=== PATIENT | male | born 1960 | race Caucasian/White ===

== ENCOUNTER → 2020-11-23 | Outpatient (CLI) | payer BC ==
[~2020-11-23] MED LIST: ALDACTONE 25MG25 MG PO; AMIODARONE HCL200 MG PO; AMIODARONE HCL400 MG PO; ASPIRIN EC81 MG PO; CLINDAMYCIN HC300 MG PO; COZAAR 25MG TAB25 MG PO; HYDROCODON-ACE1 EAC4 PO; IRON PO; LOPRESSOR 25 MG25 MG PO; MEXILETINE HCL200 MG PO; SYNTHROID200 MCG PO; TYLENOL WITH C1 EACH PO
== END ==
LOC: HEART 5 09:00
DX: Z51.81 Encounter for therapeutic drug level monitoring (principal); Z79.899 Other long term (current) drug therapy; R94.2 Abnormal results of pulmonary function studies; F17.210 Nicotine dependence, cigarettes, uncomplicated
CPT/HCPCS: 94010; 94729

== ENCOUNTER → 2020-12-06 | Outpatient (CLI) | payer BC | LOC: HEART 5 12-01 13:30 | DX: I50.22 Chronic systolic (congestive) heart failure (principal); I42.0 Dilated cardiomyopathy; R93.1 Abnormal findings on diagnostic imaging of heart and coronary circulation; I07.1 Rheumatic tricuspid insufficiency; Z95.0 Presence of cardiac pacemaker | CPT/HCPCS: 93306 ==

== ENCOUNTER 2020-12-10 11:36 | Emergency (ER) | payer BC ==
[~2020-12-10 11:36] MED LIST changes: -HYDROCODON-ACE1 EAC4 PO
[2020-12-10] MEDS ORDERED: HYDROCODON-ACE1 EAC4 PO (16:19)
== END 2020-12-10 16:43 | disposition home or self-care (01) ==
LOC: ER1 11:36
DX: S61.412A Laceration without foreign body of left hand, initial encounter (principal); S00.83XA Contusion of other part of head, initial encounter; I25.10 Atherosclerotic heart disease of native coronary artery without angina pectoris; Z95.0 Presence of cardiac pacemaker; Z88.0 Allergy status to penicillin; Z88.1 Allergy status to other antibiotic agents; W19.XXXA Unspecified fall, initial encounter; Y92.009 Unspecified place in unspecified non-institutional (private) residence as the place of occurrence of the external cause
CPT/HCPCS: 12004; 73130; 99283

== ENCOUNTER 2021-03-31 23:20 | Inpatient (IN) | payer BC ==
[~2021-03-31] VITALS: Ht 182.9 cm; Wt 129.3 kg
[~2021-03-31 23:20] MED LIST changes: +HYDROCODON-ACE1 EAC4 PO; -IRON PO; -SYNTHROID200 MCG PO
[2021-04-01 00:59] LABS: RED BLOOD COUNT 5.13 M/UL (4.20-5.50); WHITE BLOOD COUNT 6.7 K/UL (4.5-11.0)
[2021-04-01 01:25] LABS: BUN/CREATININE RATIO 26 (0-10)
[2021-04-02 04:46] LABS: HEMOGLOBIN 16.3 gm/dl (14.0-17.5); RED BLOOD COUNT 4.66 M/UL (4.20-5.50); WHITE BLOOD COUNT 7.7 K/UL (4.5-11.0)
[2021-04-02 05:08] LABS: BUN/CREATININE RATIO 30 (0-10)
[2021-04-03 02:07] LABS: HEMOGLOBIN 15.9 gm/dl (14.0-17.5); RED BLOOD COUNT 4.54 M/UL (4.20-5.50); WHITE BLOOD COUNT 9.1 K/UL (4.5-11.0)
[2021-04-03 02:27] LABS: BUN/CREATININE RATIO 32 (0-10)
[2021-04-03] MEDS ORDERED: PACERONE200 MG PO (12:52)
--- NOTE | 2021-04-03 19:27 | NUR ---
PROVIDERS JOIE AND OMER NOTIFED OF THE CRITICAL LACTIC ACID RESULTS FOR THE PT IN 4114. JOIE STATED NO FURTHER TREATMENT NEED THIS MORNING ON ASSESSMENT DUE TO FLUIDS RUNNING. OMER STATED NO FURTHER TREATMENTS WERE NEEDED EXCEPT FLUIDS FOR 4114 AND THEN IF LACTIC ACID RESOLVES WITHIN NORMAL LIMITS, FLUIDS CAN BE DISCONTINUED. WILL CONTINUE TO MONITOR PT THROUGHOUT THE SHIFT.
[2021-04-03] MEDS ORDERED: SYNTHROID175 MCG PO (19:47)
[2021-04-03] MEDS ORDERED: IRON325 M1 PO (19:49)
[2021-04-04 11:44] LABS: HEMOGLOBIN 17.3 gm/dl (14.0-17.5); RED BLOOD COUNT 4.9 M/UL (4.20-5.50); WHITE BLOOD COUNT 10.1 K/UL (4.5-11.0)
[2021-04-04 12:14] LABS: BUN/CREATININE RATIO 32 (0-10)
[2021-04-05 07:01] LABS: HEMOGLOBIN 17.2 gm/dl (14.0-17.5); RED BLOOD COUNT 4.92 M/UL (4.20-5.50); WHITE BLOOD COUNT 11.7 K/UL (4.5-11.0)
[2021-04-05 07:41] LABS: BUN/CREATININE RATIO 27 (0-10)
[2021-04-06 06:47] LABS: HEMOGLOBIN 18.2 gm/dl (14.0-17.5); RED BLOOD COUNT 5.21 M/UL (4.20-5.50); WHITE BLOOD COUNT 12.2 K/UL (4.5-11.0)
[2021-04-06 07:32] LABS: BUN/CREATININE RATIO 31 (0-10)
[2021-04-07 04:14] LABS: HEMOGLOBIN 18.3 gm/dl (14.0-17.5); RED BLOOD COUNT 5.21 M/UL (4.20-5.50); WHITE BLOOD COUNT 13.1 K/UL (4.5-11.0)
[2021-04-07 05:08] LABS: BUN/CREATININE RATIO 31 (0-10)
[2021-04-08 07:48] LABS: HEMOGLOBIN 17.6 gm/dl (14.0-17.5); RED BLOOD COUNT 5.32 M/UL (4.20-5.50); WHITE BLOOD COUNT 14.3 K/UL (4.5-11.0)
[2021-04-08 08:12] LABS: BUN/CREATININE RATIO 35 (0-10)
[2021-04-09 03:18] LABS: HEMOGLOBIN 18.7 gm/dl (14.0-17.5); RED BLOOD COUNT 5.73 M/UL (4.20-5.50)
[2021-04-09 03:41] LABS: BUN/CREATININE RATIO 34 (0-10)
[2021-04-10 06:16] LABS: HEMOGLOBIN 18.1 gm/dl (14.0-17.5); RED BLOOD COUNT 5.53 M/UL (4.20-5.50); WHITE BLOOD COUNT 14.3 K/UL (4.5-11.0)
[2021-04-10 06:31] LABS: BUN/CREATININE RATIO 36 (0-10)
[2021-04-11 04:54] LABS: HEMOGLOBIN 19.2 gm/dl (14.0-17.5); RED BLOOD COUNT 5.43 M/UL (4.20-5.50); WHITE BLOOD COUNT 13.1 K/UL (4.5-11.0)
[2021-04-11 05:15] LABS: BUN/CREATININE RATIO 42 (0-10)
[2021-04-11] MEDS ORDERED: ELIQUIS 5 MG TAB5 MG PO (12:33)
[2021-04-11] MEDS ORDERED: DEXAMETHASONE1 MG PO (12:36)
[2021-04-11] MEDS ORDERED: PROTONIX 40 MG40 M1 PO (12:36)
--- NOTE | 2021-04-11 17:37 | NUR ---
1700 TELEMETRY CALLED STATED PT IN [facility], DR ETLLO NOTIFIED EKG AND CARDIOLOGY NOTIFIED, NEW ORDERS RECEIVED, SONNY MANAGER DRIVE NOTIFIED OF NEED FOR SPECIALTY BED
--- NOTE | 2021-04-11 18:35 | NUR ---
1720 REPORT CALLED TO SHRUTHI ON PCU, 1745 PT TAKING TO PCU RM [id number] AND STARTED ON LIDOCAINE DRIP ORDERED
[2021-04-11 21:02] LABS: BUN/CREATININE RATIO 47 (0-10)
[2021-04-12 03:24] LABS: HEMOGLOBIN 18.9 gm/dl (14.0-17.5); RED BLOOD COUNT 5.37 M/UL (4.20-5.50); WHITE BLOOD COUNT 14.4 K/UL (4.5-11.0)
[2021-04-12 04:02] LABS: BUN/CREATININE RATIO 47 (0-10)
[2021-04-13 03:33] LABS: HEMOGLOBIN 19.8 gm/dl (14.0-17.5); RED BLOOD COUNT 5.63 M/UL (4.20-5.50); WHITE BLOOD COUNT 12.4 K/UL (4.5-11.0)
[2021-04-13 04:19] LABS: BUN/CREATININE RATIO 41 (0-10)
[2021-04-14 11:23] LABS: BUN/CREATININE RATIO 37 (0-10)
--- NOTE | 2021-04-14 16:18 | NUR ---
PATIENT IS 87% ON ROOM AIR.
[2021-04-15 03:02] LABS: HEMOGLOBIN 19.3 gm/dl (14.0-17.5); RED BLOOD COUNT 5.49 M/UL (4.20-5.50)
[2021-04-15 03:36] LABS: BUN/CREATININE RATIO 40 (0-10)
[2021-04-15 16:42] LABS: BUN/CREATININE RATIO 42 (0-10)
[2021-04-16 03:14] LABS: HEMOGLOBIN 17.7 gm/dl (14.0-17.5); RED BLOOD COUNT 4.99 M/UL (4.20-5.50); WHITE BLOOD COUNT 16.9 K/UL (4.5-11.0)
[2021-04-16 03:40] LABS: BUN/CREATININE RATIO 43 (0-10)
[2021-04-16 12:05] LABS: BUN/CREATININE RATIO 42 (0-10)
--- NOTE | 2021-04-17 04:36 | NUR ---
PATIENT NOTIFIED RN THAT HE WAS HAVING CHEST TIGHTNESS AND DISCOMFORT. BP 124/78, HR59 O2 96 ON 3LNC. HE STATES, " I JUST FEEL LIKE I CANT CATCH MY BREATH.". NOTIFIED DR FELICIANO AND ORDERS PLACED.
[2021-04-17 08:29] LABS: HEMOGLOBIN 17.9 gm/dl (14.0-17.5); RED BLOOD COUNT 5.15 M/UL (4.20-5.50); WHITE BLOOD COUNT 16.4 K/UL (4.5-11.0)
[2021-04-17 09:00] LABS: BUN/CREATININE RATIO 41 (0-10)
[2021-04-18 03:18] LABS: WHITE BLOOD COUNT 16.1 K/UL (4.5-11.0)
[2021-04-18 03:23] LABS: RED BLOOD COUNT 4.59 M/UL (4.20-5.50)
[2021-04-18 03:56] LABS: BUN/CREATININE RATIO 45 (0-10)
[2021-04-18 17:08] LABS: BUN/CREATININE RATIO 36 (0-10)
[2021-04-19 03:17] LABS: HEMOGLOBIN 16.5 gm/dl (14.0-17.5); RED BLOOD COUNT 4.73 M/UL (4.20-5.50)
[2021-04-19 03:56] LABS: BUN/CREATININE RATIO 31 (0-10)
[2021-04-19 13:31] LABS: BUN/CREATININE RATIO 36 (0-10)
[2021-04-20 03:12] LABS: HEMOGLOBIN 14.8 gm/dl (14.0-17.5); RED BLOOD COUNT 4.31 M/UL (4.20-5.50)
[2021-04-20 03:27] LABS: BUN/CREATININE RATIO 33 (0-10)
[2021-04-20] MEDS ORDERED: ROPINIROLE HCL0.5 MG PO (11:43)
[2021-04-21 05:56] LABS: HEMOGLOBIN 13.2 gm/dl (14.0-17.5); RED BLOOD COUNT 3.85 M/UL (4.20-5.50)
[2021-04-21 06:47] LABS: BUN/CREATININE RATIO 30 (0-10)
[2021-04-21] MEDS ORDERED: SODIUM CHLORIDE1 G1 PO ×2 (08:07→08:16)
== END 2021-04-21 13:39 | DRG 177 ==
LOC: ER1 23:20 → CDU 04-01 02:37 → PROG CARE 04-01 02:37 → MED SURG 4 04-01 02:37 → PROG CARE 04-11 18:00
PROVIDERS: Internal Medicine; Internal Medicine Nephrology; Physician Assistant; Student in an Organized Health Care Education/Training Program; ADMIT Internal Medicine
PROC: XW033E5 Introduction of Remdesivir Anti-infective into Peripheral Vein, Percutaneous Approach, New Technology Group 5 (ICD-10-PCS; 2021-04-01)
PROC: 3E0333Z Introduction of Anti-inflammatory into Peripheral Vein, Percutaneous Approach (ICD-10-PCS; 2021-04-01)
PROC: XW13325 Transfusion of Convalescent Plasma (Nonautologous) into Peripheral Vein, Percutaneous Approach, New Technology Group 5 (ICD-10-PCS; principal; 2021-04-02)
PROC: 8E0ZXY6 Isolation (ICD-10-PCS; 2021-04-19)
DX: U07.1 COVID-19 (principal); J12.82 Pneumonia due to coronavirus disease 2019; J96.01 Acute respiratory failure with hypoxia; I26.99 Other pulmonary embolism without acute cor pulmonale; I47.2 Ventricular tachycardia; I50.22 Chronic systolic (congestive) heart failure; I42.0 Dilated cardiomyopathy; E87.2 Acidosis; N17.9 Acute kidney failure, unspecified; E22.2 Syndrome of inappropriate secretion of antidiuretic hormone; I25.10 Atherosclerotic heart disease of native coronary artery without angina pectoris; I34.0 Nonrheumatic mitral (valve) insufficiency; G25.81 Restless legs syndrome; I11.0 Hypertensive heart disease with heart failure; E03.9 Hypothyroidism, unspecified; I45.81 Long QT syndrome; F41.9 Anxiety disorder, unspecified; R53.81 Other malaise; Z95.810 Presence of automatic (implantable) cardiac defibrillator; Z88.0 Allergy status to penicillin; Z87.891 Personal history of nicotine dependence; Z79.01 Long term (current) use of anticoagulants; Z79.82 Long term (current) use of aspirin; Z79.899 Other long term (current) drug therapy
CPT/HCPCS: 36415; 71045; 71250; 73080; 76705; 80048; 80053; 80061; 80076; 82436; 82533; 82550; 82553; 82570; 82803; 82962; 83605; 83615; 83735; 83874; 83880; 83935; 84100; 84133; 84156; 84300; 84439; 84443; 84484; 85025; 85027; 85379; 86140; 86900; 86901; 86927; 87040; 93005; 94760; 96374; 97116-GP-CQ; 97162; 97164; 97166; 97530; 97530-GP-CQ; 97535; 99285; J1100; J1650; J1940; J2001; J2185; J7030; J7040; J7050; Q0177; Q9967; U0002

== ENCOUNTER → 2021-05-24 | Outpatient (CLI) | payer BC ==
[~2021-05-24] MED LIST changes: +DEXAMETHASONE1 MG PO; +ELIQUIS 5 MG TAB5 MG PO; +IRON325 M1 PO; +PACERONE200 MG PO; +PROTONIX 40 MG40 M1 PO; +ROPINIROLE HCL0.5 MG PO; +SODIUM CHLORIDE1 G1 PO; +SYNTHROID175 MCG PO
== END ==
LOC: EXRD 10:42
DX: Z09 Encounter for follow-up examination after completed treatment for conditions other than malignant neoplasm (principal); Z86.16 Personal history of COVID-19; J84.9 Interstitial pulmonary disease, unspecified; J98.4 Other disorders of lung
CPT/HCPCS: 71046

== ENCOUNTER → 2021-06-21 | Outpatient (CLI) | payer BC | LOC: KOH-I 13:00 | DX: J84.10 Pulmonary fibrosis, unspecified (principal); J98.4 Other disorders of lung; D73.89 Other diseases of spleen; Z86.16 Personal history of COVID-19 | CPT/HCPCS: 71250 ==

== ENCOUNTER → 2021-06-21 | Outpatient (CLI) | payer BC | LOC: RT 14:28 | DX: J84.10 Pulmonary fibrosis, unspecified (principal) | CPT/HCPCS: 36600; 82803 ==

== ENCOUNTER → 2022-03-06 | Outpatient (CLI) | payer BC | LOC: EXRD 11:00 | DX: R06.02 Shortness of breath (principal); Z79.899 Other long term (current) drug therapy; R94.2 Abnormal results of pulmonary function studies | CPT/HCPCS: 94060; 94729 ==

== ENCOUNTER → 2022-03-07 | Outpatient (CLI) | payer BC | LOC: HEART 5 13:33 → EXRD 13:33 | DX: I73.9 Peripheral vascular disease, unspecified (principal) | CPT/HCPCS: 93925 ==